=== PATIENT | male | born 1980 | race African-American/Black ===

== ENCOUNTER 2019-10-11 06:51 | Emergency (ER) | payer SELFPAY ==
--- NOTE | 2019-10-11 07:59 | ED ---
Influenza-Like Illness - HPI Summary HPI Summary: Patient is a 39 y/o M presenting to the ED for a chief complaint of influenza- like symptoms. Patient states he was recently traveling on a plane and was contacted by the airline after his flight. The airline told the patient he had been vomited on by another passenger on the plane and that the passenger may have passed on an illness to the patient. Patient was flying from [place] to [place] on 10/06/19. Since 10/07/19, patient has had a cough, chest pain that he attributes to coughing, nasal congestion, nausea, and vomiting. The cough worsened on 10/10/19. Patient denies fever or diarrhea. No aggravating or alleviating factors are reported. Any significant PMHx is denied. FMHx is significant for HTN and DM. - History of Current Complaint Chief Complaint: EDFluSymptoms Time Seen by Provider: 10/11/19 07:01 Hx Obtained From: Patient Onset/Duration: Sudden Onset, Still Present Severity: Moderate Associated Signs & Symptoms: Cough, Nasal Congestion, Vomiting Related Hx: Possible Flu/Infectious Exposure - Allergy/Home Medications Allergies/Adverse Reactions: Allergies Allergy/AdvReac Type Severity Reaction Status Date / Time No Known Allergies Allergy Verified 10/11/19 06:55 Home Medications: Home Medications Ondansetron ODT TAB* [Zofran 4 MG Odt TAB*] 4 mg PO Q8H PRN 4 Days #12 tab.odt 10/11/19 [Rx] PMH/Surg Hx/FS Hx/Imm Hx Previously Healthy: Yes Endocrine/Hematology History: Denies: Hx Diabetes Cardiovascular History: Denies: Hx Hypercholesterolemia, Hx Hypertension Sensory History: Denies: Hx Legally Blind, Hx Deafness Opthamlomology History: Denies: Hx Legally Blind EENT History: Denies: Hx Deafness - Surgical History Surgical History: None Surgery Procedure, Year, and Place: None Infectious Disease History: No Infectious Disease History: Denies: Traveled Outside the [place] in Last 30 Days - Family History Known Family History: Positive: Hypertension, Diabetes - Social History Lives: With Family Alcohol Use: Occasionally Hx Substance Use: Yes Substance Use Type: Reports: Marijuana Substance Use Comment - Amount & Last Used: last used 5 days ago Hx Tobacco Use: Yes Smoking Status (MU): Light Every Day Tobacco Smoker Review of Systems Negative: Fever Positive: Other - Positive nasal congestion Positive: Chest Pain Positive: Cough Positive: Vomiting, Nausea. Negative: Diarrhea All Other Systems Reviewed And Are Negative: Yes Physical Exam - Summary Physical Exam Summary: Constitutional: Well-developed, Well-nourished, Alert. (-) Distressed Skin: Warm, Dry HENT: Normocephalic; Atraumatic Eyes: Conjunctiva normal Neck: Musculoskeletal ROM normal neck. (-) JVD, (-) Stridor, (-) Nuchal rigidity Cardio: Rhythm regular, rate normal, Heart sounds normal; Intact distal pulses; Radial pulses are 2+ and symmetric. (-) Murmur Pulmonary/Chest wall: Effort normal. (-) Respiratory distress, (-) Wheezes, (-) Rales Abd: Soft, (-) tenderness, (-) Distension, (-) Guarding, (-) Rebound Musculoskeletal: (-) Edema Lymph: (-) Cervical adenopathy Neuro: Alert, Oriented x3 Psych: Mood and affect Normal Triage Information Reviewed: Yes Vital Signs On Initial Exam: Initial Vitals Temp Pulse Resp BP Pulse Ox 98.2 F 75 18 140/101 97 10/11/19 06:53 10/11/19 06:53 10/11/19 06:53 10/11/19 06:53 10/11/19 06:53 Vital Signs Reviewed: Yes Procedures - Sedation Patient Received Moderate/Deep Sedation with Procedure: No Diagnostics - Vital Signs Vital Signs Temp Pulse Resp BP Pulse Ox 10/11/19 07:14 65 97 10/11/19 06:53 98.2 F 75 18 140/101 97 - Laboratory Lab Results: Lab Results 10/11/19 Range/Units 07:51 Influenza A (Rapid) Pending Influenza B (Rapid) Pending Lab Statement: Any lab studies that have been ordered have been reviewed, and results considered in the medical decision making process. Flu Symptom Course/Dx - Course Course Of Treatment: Patient presented with flulike symptoms. Flu negative. Abdomen soft. Patient well appearing, with stable vitals. Patient does not have increased work of breathing, productive cough to suggest pneumonia. No headache, neck pain or nuchal rigidity. Tolerating by mouth. Plan for discharge w symptomatic control and will return for worsening symptoms. - Diagnoses Provider Diagnoses: Nausea & vomiting, Cough Discharge ED - Sign-Out/Discharge Documenting (check all that apply): Patient Departure - Discharge - Discharge Plan Condition: Stable Disposition: HOME Prescriptions: Ondansetron ODT TAB* [Zofran 4 MG Odt TAB*] 4 mg PO Q8H PRN 4 Days #12 tab.odt PRN Reason: Nausea/Vomiting Patient Education Materials: Acute Nausea and Vomiting (ED) Referrals: [facility] [Outside] Additional Instructions: You were seen in emergency department for nausea vomiting and cough Please drink lots of fluids including water or Gatorade. Please return to emergency department if you have shortness of breath, worsening pain, continued vomiting and are unable to drink fluids, fevers for more than 5 days or if you're concerned. Please take Zofran as needed every 8 hours or vomiting. If any lab studies are completed at time of discharge, you'll be called with the relevant results. Please follow up with her primary care doctor in next 1-2 days. It was a pleasure taking care of you today! - Billing Disposition and Condition Condition: STABLE Disposition: Home - Attestation Statements Document Initiated by Marissaibe: Yes Documenting Scribe: Jane Omer Provider For Whom Patricia is Documenting (Include Credential): Sorin Ahuja MD Scribe Attestation: I, Jane Omer, scribed for Sorin Ahuja MD on 10/11/19 at 0925. Scribe Documentation Reviewed: Yes Provider Attestation: The documentation as recorded by the Jane brown accurately reflects the service I personally performed and the decisions made by me, Sorin Ahuja MD Status of Scribe Document: Viewed
[2019-10-11 08:14] LABS: Influenza A Molecular Negative (Negative); Influenza B Molecular Negative (Negative)
[2019-10-11 08:33] VITALS: BP 154/86
== END 2019-10-11 08:32 | disposition home or self-care (01) ==
LOC: ED 06:51
DX: R11.2 Nausea with vomiting, unspecified (principal); R05 Cough; R09.81 Nasal congestion; F17.200 Nicotine dependence, unspecified, uncomplicated
CPT/HCPCS: 99282